=== PATIENT | female | born 1980 ===

== ENCOUNTER 2025-02-13 06:00 | Day surgery (SDC) | payer OTHER ==
[2025-02-03 14:24] VITALS: BP 132/89
[2025-02-10 15:25] LABS: URINE APPEARANCE Clear; URINE BILIRRUBIN Negative (NEGATIVE); URINE BLOOD Negative; URINE COLOR Yellow; URINE GLUCOSE Negative (NEGATIVE); URINE KETONE Trace (NEGATIVE); URINE LEUKOCYTE Negative; URINE NITRATE Negative; URINE PROTEIN Negative (NEGATIVE); URINE UROBILINOGEN 1.0 E.U./dl
[2025-02-10 15:28] LABS: URINE BACTERIA 233.9 uL (0.0-1933); URINE EPITHELIAL CELLS 8.7 uL (0.0-38.8); URINE RBC 31.0 uL (0.0-20.8); URINE WBC 7.5 uL (0.0-23.2)
[2025-02-10 15:58] LABS: URINE CAST 0.29 uL (0.0-1.40)
[~2025-02-13] VITALS: Ht 160 cm; Wt 85.3 kg
[2025-02-13] MEDS ORDERED: POVIDONE-IODINE 118 ML BOTT TOP ONE (09:00)
[2025-02-13] MEDS ORDERED: KETOROLAC TROMETHAMINE 60 MG VIAL IM ONE (10:00)
[2025-02-13] MEDS ORDERED: ONDANSETRON HCL 2 MG/ML VIAL IV ONE (10:00)
== END 2025-02-13 14:45 | disposition home or self-care (01) ==
LOC: CIR.AMB 06:00
PROVIDERS: ATTEND Obstetrics & Gynecology
DX: N84.0 Polyp of corpus uteri (principal); N95.0 Postmenopausal bleeding; Z91.013 Allergy to seafood